=== PATIENT | female | born 1990 | race Caucasian/White ===

== ENCOUNTER 2019-09-26 14:23 | Inpatient (IN) | payer SELFPAY ==
[2019-09-26] MEDS ORDERED: DOCUSATE SODIUM 100 MG CAP PO PRN (14:31)
[2019-09-26] MEDS ORDERED: AMPICILLIN/NS 2 GM/100 ML 2 GM/100 ML BAG IV ONE (14:31)
[2019-09-26] MEDS ORDERED: ONDANSETRON 4 MG/2 ML INJ IV PRN (14:31)
[2019-09-26] MEDS ORDERED: MAGNESIUM SULFATE 4 GM/100 ML BAG IV ONE (14:39)
[2019-09-26] MEDS: LACTATED RINGERS 1,000 ML IV SCH (15:31)
[2019-09-26 16:12] LABS: Basophils # (Auto) 0.1 K/mm3 (0.0-0.1); Basophils % (Auto) 0.4 % (0.0-1.8); Eosinophils % (Auto) 0.1 % (0.0-4.3); Hemoglobin 11.4 gm/dl (10.1-14.3); Lymphocytes # (Auto) 1.9 K/mm3 (1.2-5.4); Lymphocytes % (Auto) 15.9 % (13.4-35.0); Mean Corpuscular HGB Conc 33 % (30-34); Mean Corpuscular Volume 92 fl (79-97); Monocytes # (Auto) 0.5 K/mm3 (0.0-0.8); Monocytes % (Auto) 4.1 % (0.0-7.3); Platelet Count 266 K/mm3 (140-440); Red Blood Count 3.71 M/mm3 (3.65-5.03); Red Cell Distribution Width 13.9 % (13.2-15.2)
[2019-09-26] MEDS: MAGNESIUM SULFATE 40GM/1000ML 40 GM/1,000 ML BAG IV SCH (16:12)
[2019-09-26] MEDS: BETAMET ACET/BETAMET NA PH 6 MG/ML INJ 5 ML MDV IM SCH (16:13)
--- NOTE | 2019-09-26 16:18 | History and Physical Report ---
History of Present Illness Date of examination: 09/26/19 (pt presents today with worsening pain that has been ongoing the entire .) History of present illness: Pt states she has been in [place] for 2 weeks She traveled here from . Pt states she has gone to hospital ED or Triage for care. She has not seen an OB for care. Pt states her other 3 children are in [place] with their dad. US done today 30w4d EDC 12-01-2019 third trimester US Medical: pt states she has stomach ulcers and acid reflux Surgical: no hx Denies ETOH,drugs,smoking 1. 2008 term no problems 2. 2011 term no problems 3. 2018 @ 36w EDC based on early US done in [place] 12-07-2019 Past History - Obstetrical History Expected Date of Delivery: 12/07/19 (per pt based on one of her many visits to EDs in [place]) Actual Gestation: 29 Week(s) 5 Day(s) : 4 Para: 3 Hx # Term Pregnancies: 2 Number of Pregnancies: 1 (36 weeks) Spontaneous Abortions: 0 Induced : 0 Number of Living Children: 3 Medications and Allergies Allergies Allergy/AdvReac Type Severity Reaction Status Date / Time No Known Allergies Allergy Unverified 09/26/19 14:29 Active Meds: Active Medications Acetaminophen (Tylenol) 650 mg PO Q4H PRN PRN Reason: Pain MILD(1-3)/Fever >100.5/CAMPOS Betamethasone Acet/Betameth SodPhos (Celestone Soluspan) 12 mg IM Q24HR SERAFIN Stop: 09/27/19 10:01 Docusate Sodium (Colace) 100 mg PO Q12H PRN PRN Reason: Constipation Lactated Ringer's (Lactated Ringers) 1,000 mls @ 125 mls/hr IV DIRECT SERAFIN Last Admin: 09/26/19 15:31 Dose: 75 mls/hr Documented by: Ampicillin Sodium (Ampicillin/Ns 1 Gm/50 Ml) 1 gm in 50 mls @ 100 mls/hr IV Q4HR SERAFIN; Protocol Magnesium Sulfate (Magnesium Sulfate 40gm/1000ml) 40 gm in 1,000 mls @ 50 mls/hr IV DIRECT SERAFIN Multivitamins/Iron/Calcium ( Vitamin) 1 each PO QDAY SERAFIN Ondansetron HCl (Zofran) 4 mg IV Q6H PRN PRN Reason: Nausea And Vomiting Last Admin: 09/26/19 15:47 Dose: 4 mg Documented by: Review of Systems Gastrointestinal: heartburn, indigestion - Vital Signs Vital signs: Vital Signs Temp 98.0 F 09/26/19 14:26 Temp Pulse Resp BP Pulse Ox 98.0 F 73 141/82 97 09/26/19 14:26 09/26/19 16:08 09/26/19 14:29 09/26/19 16:08 - Physical Exam Breasts: Positive: deferred Cardiovascular: Regular rate, Normal S1, Normal S2 Lungs: Positive: Clear to auscultation Abdomen: Positive: normal appearance, soft, normal bowel sounds. Negative: distention, tenderness Genitourinary (Female): Positive: normal external genitalia Vulva: both: normal Vagina: Positive: normal moisture. Negative: discharge Cervix: Negative: lesion, discharge Uterus: Positive: normal size, normal contour Adnexa: both: normal Anus/Rectum: Positive: normal perianal skin, heme negative. Negative: rectal mass, hemorrhoids Extremities: Positive: normal Deep Tendon Reflex Grade: Normal +2 - Obstetrical FHR: category 1 Uterine Contraction Monitor Mode: External Cervical Dilatation: 2.5 Cervical Effacement Percentage: 40 station: -3 Uterine Contraction Pattern: Irregular Uterine Tone Measurement Phase: Resting Uterine Contraction Intensity: Mild Results Result Diagrams: 09/26/19 14:30 09/26/19 14:30 All other labs normal. all OB labs ordered Assessment and Plan 29yo @ 29w5d No PNC. All orders in EMR. - Patient Problems (1) Reflux gastritis Onset Date: ~09/26/19 Current Visit: Yes Status: Acute Plan to address problem: Pt states she has had this problem with every . Pepcid IV given. Appears to have given relief (2) No care in current in third trimester Onset Date: ~09/26/19 Current Visit: Yes Status: Acute Plan to address problem: Pt has not had any care with this . States she has not gotten any medicaid. Traveled here from [place] just 2 weeks ago. She lives with her mother in- law who works in a restaurant. Her 3 children live in [place] with their father. All OB labs drawn. (3) 29 to 30 weeks gestation of Onset Date: ~09/26/19 Current Visit: Yes Status: Acute Plan to address problem: On arrival today Pt was screaming and thrashing about. Initial exam by RN 4,thin,0. Elevated BP on arrival. RN spoke to DR Redd orders placed for MGSO4, BMZ, and ABX. Rare ctx noted on monitor @ this time and encouraged pt to stop bearing down. FHR Cat [address] Redd given report.
[2019-09-26] MEDS: ACETAMINOPHEN 325 MG TAB PO PRN (16:26)
[2019-09-26] MEDS ORDERED: FAMOTIDINE 20 MG/2 ML INJ IV ONE (16:26)
[2019-09-26 16:28] LABS: Alanine Aminotransferase 19 units/L (7-56); Albumin 3.8 g/dL (3.9-5); BUN/Creatinine Ratio 25; Blood Urea Nitrogen 10 mg/dL (7-17); Hemolysis Index 7
[2019-09-26] MEDS: FAMOTIDINE 20 MG/2 ML INJ IV SCH (16:28)
[2019-09-26 16:34] LABS: Hepatitis C Virus Antibody Non-Reactive (NonReactive)
--- NOTE | 2019-09-26 16:49 | Ultrasound Report ---
ULTRASOUND OBSTETRIC INDICATION / CLINICAL INFORMATION: labor / no care. Clinical Gestational Age (GA): 29 weeks 5 days TECHNIQUE: Transabdominal. COMPARISON: None available. FINDINGS: There is a single intrauterine . Biparietal Diameter = 7.93 cm = 31 weeks, 6 day(s). Head Circumference = 28.79 cm = 31 weeks, 5 day(s). Abdominal Circumference = 24.73 cm = 29 weeks, 0 day(s). Femur Length = 5.6 cm = 29 weeks, 3 day(s). Average Ultrasound Age (AUA) = 30 weeks, 4 day(s). Heart Rate: 141 beats per minute. Estimated Weight in grams (if calculated): 1419 Estimated Weight Growth Percentile (if calculated): 32 Position: cephalic. Cervix: closed. Placenta: Fundal and free of the os. Amniotic Fluid Volume: normal Amniotic Fluid Index (AMBAR) in cm (if calculated): 11.0. Maternal Adnexa: No significant abnormality. IMPRESSION: 1. Single, living intrauterine with estimated sonographic age of 30 weeks, 4 day(s). 2. No significant sonographic abnormality. Signer Name: Moustapha Sung MD Signed: 09/26/2019 4:45 PM Workstation Name: [id number]
[2019-09-26 17:10] LABS: Bacteria,Urine 1+ /HPF (Negative); Bilirubin,Urine NEG (Negative); Blood,Urine NEG (Negative); Color,Urine Yellow (Yellow); Mucus,Urine 1+ /HPF; Protein,Urine <15 mg/dL mg/dL (Negative); Urobilinogen,Urine < 2.0 mg/dL (<2.0)
[2019-09-26 17:15] LABS: Amphetamine Screen,Urine PRESUMPTIVE NEGATIVE; Benzodiazepines Screen,Urine PRESUMPTIVE NEGATIVE; Cocaine Screen,Urine PRESUMPTIVE NEGATIVE; Methadone Screen,Urine PRESUMPTIVE NEGATIVE; Opiate Screen,Urine PRESUMPTIVE NEGATIVE
[2019-09-26 17:31] LABS: Cannabinoid Screen,Urine PRESUMPTIVE POSITIVE
[2019-09-26] MEDS ORDERED: fentaNYL 100 MCG/2 ML INJ IV ONE (19:46)
[2019-09-26] MEDS: AMPICILLIN/NS 1 GM/50 ML 1 GM/50 ML BAG IV SCH (21:25)
--- NOTE | 2019-09-26 22:49 | Event Note ---
Date: 09/26/19 UDS positive for MJ as per RN pt states she ate the marijuana and did not smoke it.
[2019-09-27] MEDS: AMPICILLIN/NS 1 GM/50 ML 1 GM/50 ML BAG IV SCH ×4 (01:34→14:55)
[2019-09-27] MEDS ORDERED: ZOLPIDEM 5 MG TAB PO PRN (01:40)
[2019-09-27] MEDS ORDERED: ZOLPIDEM 5 MG TAB ONE (01:41)
[2019-09-27] MEDS: ACETAMINOPHEN 325 MG TAB PO PRN ×2 (01:42→12:08)
[2019-09-27] MEDS ORDERED: ACETAMINOPHEN 500 MG TAB PO NR (07:58)
--- NOTE | 2019-09-27 08:30 | Progress Note ---
<SCOTTY WEI - Last Filed: 09/27/19 08:23> Assessment and Plan A: 29 y.o. @ 29 wks admitted for labor, no PNC. P: Continue with magnesium sulfate until about 415pm today. Second dose of BMZ @ 415pm Possible discharge home after second dose of BMZ. Subjective - Subjective Date of service: 09/27/19 (Pt with c/o right shoulder pain.) Principal diagnosis: IUP @ 30 wks, labor Patient reports: new complaints (Right shoulder pain. States that she laid on it the wrong way. ) Objective - Vital Signs Vital Signs: Vital Signs - 12hr 09/26/19 09/26/19 09/26/19 20:28 20:33 20:38 Temperature Pulse Rate 82 71 76 Respiratory Rate Blood Pressure O2 Sat by Pulse 97 97 96 Oximetry 09/26/19 09/26/19 09/26/19 20:43 20:48 20:50 Temperature Pulse Rate 73 71 72 Respiratory Rate Blood Pressure 104/60 O2 Sat by Pulse 96 95 Oximetry 09/26/19 09/26/19 09/26/19 20:53 20:57 20:58 Temperature Pulse Rate 82 70 Respiratory 18 Rate Blood Pressure O2 Sat by Pulse 95 97 Oximetry 09/26/19 09/26/19 09/26/19 21:03 21:08 21:13 Temperature Pulse Rate 76 83 74 Respiratory Rate Blood Pressure O2 Sat by Pulse 97 98 97 Oximetry 09/26/19 09/26/19 09/26/19 21:18 21:20 21:21 Temperature Pulse Rate 77 76 86 Respiratory Rate Blood Pressure 124/63 O2 Sat by Pulse 97 92 Oximetry 09/26/19 09/26/19 09/26/19 21:23 21:28 21:33 Temperature Pulse Rate 81 72 83 Respiratory Rate Blood Pressure O2 Sat by Pulse 97 98 98 Oximetry 09/26/19 09/26/19 09/26/19 21:38 21:43 21:48 Temperature Pulse Rate 85 82 69 Respiratory Rate Blood Pressure O2 Sat by Pulse 97 98 97 Oximetry 09/26/19 09/26/19 09/26/19 21:50 21:53 21:58 Temperature Pulse Rate 69 85 81 Respiratory Rate Blood Pressure 122/57 O2 Sat by Pulse 97 97 Oximetry 09/26/19 09/26/19 09/26/19 22:03 22:08 22:13 Temperature Pulse Rate 81 77 75 Respiratory Rate Blood Pressure O2 Sat by Pulse 97 98 98 Oximetry 09/26/19 09/26/19 09/26/19 22:18 22:20 22:23 Temperature Pulse Rate 67 74 79 Respiratory Rate Blood Pressure 123/59 O2 Sat by Pulse 97 98 Oximetry 09/26/19 09/26/19 09/26/19 22:28 22:33 22:38 Temperature Pulse Rate 74 75 72 Respiratory Rate Blood Pressure O2 Sat by Pulse 97 96 98 Oximetry 09/26/19 09/26/19 09/26/19 22:41 22:43 22:48 Temperature Pulse Rate 85 88 91 H Respiratory Rate Blood Pressure O2 Sat by Pulse 94 97 97 Oximetry 09/26/19 09/26/19 09/26/19 22:50 22:53 22:58 Temperature Pulse Rate 78 76 67 Respiratory Rate Blood Pressure 118/66 O2 Sat by Pulse 96 98 Oximetry 09/26/19 09/26/19 09/26/19 23:03 23:08 23:13 Temperature Pulse Rate 87 68 89 Respiratory Rate Blood Pressure O2 Sat by Pulse 94 98 98 Oximetry 09/26/19 09/26/19 09/26/19 23:18 23:20 23:23 Temperature Pulse Rate 77 83 70 Respiratory Rate Blood Pressure 111/59 O2 Sat by Pulse 97 97 Oximetry 09/26/19 09/26/19 09/26/19 23:28 23:33 23:38 Temperature Pulse Rate 86 81 77 Respiratory Rate Blood Pressure O2 Sat by Pulse 97 98 98 Oximetry 09/26/19 09/26/19 09/26/19 23:43 23:48 23:50 Temperature Pulse Rate 82 84 82 Respiratory Rate Blood Pressure 123/57 O2 Sat by Pulse 97 98 Oximetry 09/26/19 09/26/19 09/27/19 23:53 23:58 00:00 Temperature 98.1 F Pulse Rate 82 83 88 Respiratory 17 Rate Blood Pressure O2 Sat by Pulse 99 99 Oximetry 09/27/19 09/27/19 09/27/19 00:03 00:08 00:13 Temperature Pulse Rate 74 74 85 Respiratory Rate Blood Pressure O2 Sat by Pulse 97 98 97 Oximetry 09/27/19 09/27/19 09/27/19 00:18 00:20 00:23 Temperature Pulse Rate 78 83 75 Respiratory Rate Blood Pressure 116/62 O2 Sat by Pulse 98 98 Oximetry 09/27/19 09/27/19 09/27/19 00:28 00:33 00:38 Temperature Pulse Rate 79 65 67 Respiratory Rate Blood Pressure O2 Sat by Pulse 97 97 97 Oximetry 09/27/19 09/27/19 09/27/19 00:43 00:48 00:50 Temperature Pulse Rate 98 H 95 H 68 Respiratory Rate Blood Pressure 113/57 O2 Sat by Pulse 97 98 Oximetry 09/27/19 09/27/19 09/27/19 00:53 00:58 01:01 Temperature Pulse Rate 70 86 85 Respiratory Rate Blood Pressure O2 Sat by Pulse 97 96 93 Oximetry 09/27/19 09/27/19 09/27/19 01:03 01:08 01:13 Temperature Pulse Rate 93 H 77 66 Respiratory Rate Blood Pressure O2 Sat by Pulse 97 98 97 Oximetry 09/27/19 09/27/19 09/27/19 01:18 01:20 01:23 Temperature Pulse Rate 75 69 69 Respiratory Rate Blood Pressure 109/61 O2 Sat by Pulse 97 97 Oximetry 09/27/19 09/27/19 09/27/19 01:28 01:33 01:38 Temperature Pulse Rate 72 64 89 Respiratory Rate Blood Pressure O2 Sat by Pulse 96 97 98 Oximetry 09/27/19 09/27/19 09/27/19 01:43 01:48 01:50 Temperature Pulse Rate 87 68 65 Respiratory Rate Blood Pressure 110/61 O2 Sat by Pulse 98 99 Oximetry 09/27/19 09/27/19 09/27/19 01:53 01:58 02:03 Temperature Pulse Rate 75 81 70 Respiratory Rate Blood Pressure O2 Sat by Pulse 99 98 98 Oximetry 09/27/19 09/27/19 09/27/19 02:08 02:13 02:18 Temperature Pulse Rate 74 82 73 Respiratory Rate Blood Pressure O2 Sat by Pulse 98 99 99 Oximetry 09/27/19 09/27/19 09/27/19 02:20 02:23 02:28 Temperature Pulse Rate 74 75 84 Respiratory Rate Blood Pressure 103/56 O2 Sat by Pulse 99 99 Oximetry 09/27/19 09/27/19 09/27/19 02:33 02:38 02:43 Temperature Pulse Rate 71 80 89 Respiratory Rate Blood Pressure O2 Sat by Pulse 100 99 98 Oximetry 09/27/19 09/27/19 09/27/19 02:48 02:50 02:53 Temperature Pulse Rate 76 84 86 Respiratory Rate Blood Pressure 105/60 O2 Sat by Pulse 100 99 Oximetry 09/27/19 09/27/19 09/27/19 02:58 03:03 03:08 Temperature Pulse Rate 83 86 96 H Respiratory Rate Blood Pressure O2 Sat by Pulse 99 98 99 Oximetry 09/27/19 09/27/19 09/27/19 03:13 03:18 03:20 Temperature Pulse Rate 91 H 89 87 Respiratory Rate Blood Pressure 108/57 O2 Sat by Pulse 97 99 Oximetry 09/27/19 09/27/19 09/27/19 03:23 03:28 03:33 Temperature Pulse Rate 88 87 92 H Respiratory Rate Blood Pressure O2 Sat by Pulse 98 98 96 Oximetry 09/27/19 09/27/19 09/27/19 03:38 03:43 03:48 Temperature Pulse Rate 90 83 83 Respiratory Rate Blood Pressure O2 Sat by Pulse 99 97 96 Oximetry 09/27/19 09/27/19 09/27/19 03:53 03:58 04:03 Temperature Pulse Rate 82 81 82 Respiratory Rate Blood Pressure O2 Sat by Pulse 96 96 96 Oximetry 09/27/19 09/27/19 09/27/19 04:08 04:13 04:18 Temperature Pulse Rate 79 80 80 Respiratory Rate Blood Pressure O2 Sat by Pulse 96 96 97 Oximetry 09/27/19 09/27/19 09/27/19 04:23 04:28 04:33 Temperature Pulse Rate 82 79 81 Respiratory Rate Blood Pressure O2 Sat by Pulse 97 97 97 Oximetry 09/27/19 09/27/19 09/27/19 04:38 04:43 04:48 Temperature Pulse Rate 78 80 74 Respiratory Rate Blood Pressure O2 Sat by Pulse 97 98 97 Oximetry 09/27/19 09/27/19 09/27/19 04:53 04:58 05:03 Temperature Pulse Rate 73 75 74 Respiratory Rate Blood Pressure O2 Sat by Pulse 98 97 97 Oximetry 09/27/19 09/27/19 09/27/19 05:08 05:13 05:18 Temperature Pulse Rate 73 86 79 Respiratory Rate Blood Pressure O2 Sat by Pulse 96 96 96 Oximetry 09/27/19 09/27/19 09/27/19 05:21 05:23 05:28 Temperature Pulse Rate 78 79 78 Respiratory Rate Blood Pressure 93/53 O2 Sat by Pulse 96 96 Oximetry 09/27/19 09/27/19 09/27/19 05:33 05:38 05:43 Temperature Pulse Rate 74 79 80 Respiratory Rate Blood Pressure O2 Sat by Pulse 96 96 96 Oximetry 09/27/19 09/27/19 09/27/19 05:46 05:48 05:50 Temperature Pulse Rate 86 77 78 Respiratory Rate Blood Pressure 97/50 O2 Sat by Pulse 94 98 Oximetry 09/27/19 09/27/19 09/27/19 05:53 05:58 06:03 Temperature Pulse Rate 76 77 100 H Respiratory Rate Blood Pressure O2 Sat by Pulse 97 97 98 Oximetry 09/27/19 09/27/19 09/27/19 06:08 06:13 06:18 Temperature Pulse Rate 72 88 79 Respiratory Rate Blood Pressure O2 Sat by Pulse 98 99 97 Oximetry 09/27/19 09/27/19 09/27/19 06:20 06:23 06:28 Temperature Pulse Rate 78 82 74 Respiratory Rate Blood Pressure 103/57 O2 Sat by Pulse 97 97 Oximetry 09/27/19 09/27/19 09/27/19 06:33 06:38 06:43 Temperature Pulse Rate 91 H 84 79 Respiratory Rate Blood Pressure O2 Sat by Pulse 97 98 97 Oximetry 09/27/19 09/27/19 09/27/19 06:48 06:53 06:58 Temperature Pulse Rate 72 71 74 Respiratory Rate Blood Pressure O2 Sat by Pulse 97 98 97 Oximetry 09/27/19 09/27/19 09/27/19 07:03 07:08 07:13 Temperature Pulse Rate 74 73 76 Respiratory Rate Blood Pressure O2 Sat by Pulse 97 97 97 Oximetry 09/27/19 09/27/19 09/27/19 07:18 07:23 07:28 Temperature Pulse Rate 76 77 76 Respiratory Rate Blood Pressure O2 Sat by Pulse 96 96 96 Oximetry 09/27/19 09/27/19 09/27/19 07:33 07:38 07:43 Temperature Pulse Rate 76 84 99 H Respiratory Rate Blood Pressure O2 Sat by Pulse 96 98 100 Oximetry 09/27/19 09/27/19 09/27/19 07:48 07:53 07:55 Temperature Pulse Rate 98 H 95 H 99 H Respiratory Rate Blood Pressure O2 Sat by Pulse 98 99 94 Oximetry 09/27/19 09/27/19 09/27/19 07:58 08:03 08:08 Temperature Pulse Rate 107 H 80 92 H Respiratory Rate Blood Pressure O2 Sat by Pulse 98 99 95 Oximetry 09/27/19 09/27/19 08:13 08:18 Temperature Pulse Rate 87 84 Respiratory Rate Blood Pressure O2 Sat by Pulse 99 99 Oximetry - Exam Narrative Exam: Pt moving about in the bed stating that her right shoulder hurts from laying on it. Tylenol Extra Strength ordered. Explained plan of care for the day to the patient and she is questioning why she needs to stay in the hospital for the day. Explained at length that we have to monitor her and her baby d/t labor. She has a strong desire to go home and I also explained that it is possible that she will be discharged home if she is stable after the second dose of BMZ. Pt agrees to this plan at this time. Breasts: deferred Cardiovascular: Regular rate Lungs: Normal air movement Abdomen: Present: normal appearance, soft Vulva: both: normal Uterus: Present: normal FHR: auscultation normal, category 1 Uterine Contraction Monitor Mode: External Uterine Contraction Pattern: Absent Uterine Tone Measurement Phase: Resting Extremities: normal Deep Tendon Reflex Grade: Normal +2 - Labs Labs: Abnormal Labs 09/26/19 09/26/19 09/27/19 14:30 14:30 00:10 WBC 12.2 H Seg Neutrophils % 79.5 H Seg Neutrophils # 9.7 H Sodium 135 L Carbon Dioxide 18 L Creatinine 0.4 L Magnesium 5.60 H Albumin 3.8 L 09/27/19 06:36 WBC Seg Neutrophils % Seg Neutrophils # Sodium Carbon Dioxide Creatinine Magnesium 5.80 H Albumin Laboratory Results - last 24 hr 09/26/19 09/26/19 09/26/19 14:30 14:30 14:30 WBC 12.2 H RBC 3.71 Hgb 11.4 Hct 34.0 MCV 92 MCH 31 MCHC 33 RDW 13.9 Plt Count 266 Lymph % (Auto) 15.9 Ray % (Auto) 4.1 Eos % (Auto) 0.1 Baso % (Auto) 0.4 Lymph # 1.9 Ray # 0.5 Eos # 0.0 Baso # 0.1 Seg Neutrophils % 79.5 H Seg Neutrophils # 9.7 H Sodium 135 L Potassium 3.6 Chloride 101.9 Carbon Dioxide 18 L Anion Gap 19 BUN 10 Creatinine 0.4 L Estimated GFR > 60 BUN/Creatinine Ratio 25 Glucose 91 Calcium 9.0 Magnesium Total Bilirubin 0.30 AST 16 ALT 19 Alkaline Phosphatase 112 Total Protein 7.0 Albumin 3.8 L Albumin/Globulin Ratio 1.2 Urine Color Urine Turbidity Urine pH Ur Specific [place] Urine Protein Urine Glucose (UA) Urine Ketones Urine Blood Urine Nitrite Urine Bilirubin Urine Urobilinogen Ur Leukocyte Esterase Urine WBC (Auto) Urine RBC (Auto) U Epithel Cells (Auto) Urine Bacteria (Auto) Urine Mucus Urine Opiates Screen Urine Methadone Screen Ur Barbiturates Screen Ur Phencyclidine Scrn Ur Amphetamines Screen U Benzodiazepines Scrn Urine Cocaine Screen U Marijuana (THC) Screen Drugs of Abuse Note Syphilis IgG Antibody Hep Bs Antigen Hepatitis C Antibody HIV 1&2 Antibody Rapid HIV P24 Antigen Rubella IgG Antibody Blood Type O POSITIVE Antibody Screen Negative 09/26/19 09/26/19 09/26/19 14:30 14:30 14:30 WBC RBC Hgb Hct MCV MCH MCHC RDW Plt Count Lymph % (Auto) Ray % (Auto) Eos % (Auto) Baso % (Auto) Lymph # Ray # Eos # Baso # Seg Neutrophils % Seg Neutrophils # Sodium Potassium Chloride Carbon Dioxide Anion Gap BUN Creatinine Estimated GFR BUN/Creatinine Ratio Glucose Calcium Magnesium Total Bilirubin AST ALT Alkaline Phosphatase Total Protein Albumin Albumin/Globulin Ratio Urine Color Urine Turbidity Urine pH Ur Specific [place] Urine Protein Urine Glucose (UA) Urine Ketones Urine Blood Urine Nitrite Urine Bilirubin Urine Urobilinogen Ur Leukocyte Esterase Urine WBC (Auto) Urine RBC (Auto) U Epithel Cells (Auto) Urine Bacteria (Auto) Urine Mucus Urine Opiates Screen Urine Methadone Screen Ur Barbiturates Screen Ur Phencyclidine Scrn Ur Amphetamines Screen U Benzodiazepines Scrn Urine Cocaine Screen U Marijuana (THC) Screen Drugs of Abuse Note Syphilis IgG Antibody Non-reactive Hep Bs Antigen Non-reactive Hepatitis C Antibody Non-reactive HIV 1&2 Antibody Rapid HIV P24 Antigen Rubella IgG Antibody Immune Blood Type Antibody Screen 09/26/19 09/26/19 09/26/19 14:30 16:40 16:40 WBC RBC Hgb Hct MCV MCH MCHC RDW Plt Count Lymph % (Auto) Ray % (Auto) Eos % (Auto) Baso % (Auto) Lymph # Ray # Eos # Baso # Seg Neutrophils % Seg Neutrophils # Sodium Potassium Chloride Carbon Dioxide Anion Gap BUN Creatinine Estimated GFR BUN/Creatinine Ratio Glucose Calcium Magnesium Total Bilirubin AST ALT Alkaline Phosphatase Total Protein Albumin Albumin/Globulin Ratio Urine Color Yellow Urine Turbidity Clear Urine pH 6.0 Ur Specific [place] 1.019 Urine Protein <15 mg/dl Urine Glucose (UA) Neg Urine Ketones 80 Urine Blood Neg Urine Nitrite Neg Urine Bilirubin Neg Urine Urobilinogen < 2.0 Ur Leukocyte Esterase Neg Urine WBC (Auto) 4.0 Urine RBC (Auto) 1.0 U Epithel Cells (Auto) 2.0 Urine Bacteria (Auto) 1+ Urine Mucus 1+ Urine Opiates Screen Presumptive negative Urine Methadone Screen Presumptive negative Ur Barbiturates Screen Presumptive negative Ur Phencyclidine Scrn Presumptive negative Ur Amphetamines Screen Presumptive negative U Benzodiazepines Scrn Presumptive negative Urine Cocaine Screen Presumptive negative U Marijuana (THC) Screen Presumptive positive Drugs of Abuse Note Disclamer Syphilis IgG Antibody Hep Bs Antigen Hepatitis C Antibody HIV 1&2 Antibody Rapid Non react HIV P24 Antigen Non react Rubella IgG Antibody Blood Type Antibody Screen 09/27/19 09/27/19 00:10 06:36 WBC RBC Hgb Hct MCV MCH MCHC RDW Plt Count Lymph % (Auto) Ray % (Auto) Eos % (Auto) Baso % (Auto) Lymph # Ray # Eos # Baso # Seg Neutrophils % Seg Neutrophils # Sodium Potassium Chloride Carbon Dioxide Anion Gap BUN Creatinine Estimated GFR BUN/Creatinine Ratio Glucose Calcium Magnesium 5.60 H 5.80 H Total Bilirubin AST ALT Alkaline Phosphatase Total Protein Albumin Albumin/Globulin Ratio Urine Color Urine Turbidity Urine pH Ur Specific [place] Urine Protein Urine Glucose (UA) Urine Ketones Urine Blood Urine Nitrite Urine Bilirubin Urine Urobilinogen Ur Leukocyte Esterase Urine WBC (Auto) Urine RBC (Auto) U Epithel Cells (Auto) Urine Bacteria (Auto) Urine Mucus Urine Opiates Screen Urine Methadone Screen Ur Barbiturates Screen Ur Phencyclidine Scrn Ur Amphetamines Screen U Benzodiazepines Scrn Urine Cocaine Screen U Marijuana (THC) Screen Drugs of Abuse Note Syphilis IgG Antibody Hep Bs Antigen Hepatitis C Antibody HIV 1&2 Antibody Rapid HIV P24 Antigen Rubella IgG Antibody Blood Type Antibody Screen <BRUNO ABDUL - Last Filed: 09/27/19 11:49> Assessment and Plan Patient resting bed. Plan of care discussed, Questions encouraged and answered. She states wants to go home, explained risks of labor with premature delivery to include but not limited to her or brain damage along with bleeding and infection that may lead to as well as or brain damage for the baby. Objective - Vital Signs Vital Signs: Vital Signs - 12hr 09/26/19 09/26/19 09/26/19 23:38 23:43 23:48 Temperature Pulse Rate 77 82 84 Respiratory Rate Blood Pressure Blood Pressure [Left] O2 Sat by Pulse 98 97 98 Oximetry 09/26/19 09/26/19 09/26/19 23:50 23:53 23:58 Temperature Pulse Rate 82 82 83 Respiratory Rate Blood Pressure 123/57 Blood Pressure [Left] O2 Sat by Pulse 99 99 Oximetry 09/27/19 09/27/19 09/27/19 00:00 00:03 00:08 Temperature 98.1 F Pulse Rate 88 74 74 Respiratory 17 Rate Blood Pressure Blood Pressure [Left] O2 Sat by Pulse 97 98 Oximetry 09/27/19 09/27/19 09/27/19 00:13 00:18 00:20 Temperature Pulse Rate 85 78 83 Respiratory Rate Blood Pressure 116/62 Blood Pressure [Left] O2 Sat by Pulse 97 98 Oximetry 09/27/19 09/27/19 09/27/19 00:23 00:28 00:33 Temperature Pulse Rate 75 79 65 Respiratory Rate Blood Pressure Blood Pressure [Left] O2 Sat by Pulse 98 97 97 Oximetry 09/27/19 09/27/19 09/27/19 00:38 00:43 00:48 Temperature Pulse Rate 67 98 H 95 H Respiratory Rate Blood Pressure Blood Pressure [Left] O2 Sat by Pulse 97 97 98 Oximetry 09/27/19 09/27/19 09/27/19 00:50 00:53 00:58 Temperature Pulse Rate 68 70 86 Respiratory Rate Blood Pressure 113/57 Blood Pressure [Left] O2 Sat by Pulse 97 96 Oximetry 09/27/19 09/27/19 09/27/19 01:01 01:03 01:08 Temperature Pulse Rate 85 93 H 77 Respiratory Rate Blood Pressure Blood Pressure [Left] O2 Sat by Pulse 93 97 98 Oximetry 09/27/19 09/27/19 09/27/19 01:13 01:18 01:20 Temperature Pulse Rate 66 75 69 Respiratory Rate Blood Pressure 109/61 Blood Pressure [Left] O2 Sat by Pulse 97 97 Oximetry 09/27/19 09/27/19 09/27/19 01:23 01:28 01:33 Temperature Pulse Rate 69 72 64 Respiratory Rate Blood Pressure Blood Pressure [Left] O2 Sat by Pulse 97 96 97 Oximetry 09/27/19 09/27/19 09/27/19 01:38 01:43 01:48 Temperature Pulse Rate 89 87 68 Respiratory Rate Blood Pressure Blood Pressure [Left] O2 Sat by Pulse 98 98 99 Oximetry 09/27/19 09/27/19 09/27/19 01:50 01:53 01:58 Temperature Pulse Rate 65 75 81 Respiratory Rate Blood Pressure 110/61 Blood Pressure [Left] O2 Sat by Pulse 99 98 Oximetry 09/27/19 09/27/19 09/27/19 02:03 02:08 02:13 Temperature Pulse Rate 70 74 82 Respiratory Rate Blood Pressure Blood Pressure [Left] O2 Sat by Pulse 98 98 99 Oximetry 09/27/19 09/27/19 09/27/19 02:18 02:20 02:23 Temperature Pulse Rate 73 74 75 Respiratory Rate Blood Pressure 103/56 Blood Pressure [Left] O2 Sat by Pulse 99 99 Oximetry 09/27/19 09/27/19 09/27/19 02:28 02:33 02:38 Temperature Pulse Rate 84 71 80 Respiratory Rate Blood Pressure Blood Pressure [Left] O2 Sat by Pulse 99 100 99 Oximetry 09/27/19 09/27/19 09/27/19 02:43 02:48 02:50 Temperature Pulse Rate 89 76 84 Respiratory Rate Blood Pressure 105/60 Blood Pressure [Left] O2 Sat by Pulse 98 100 Oximetry 09/27/19 09/27/19 09/27/19 02:53 02:58 03:03 Temperature Pulse Rate 86 83 86 Respiratory Rate Blood Pressure Blood Pressure [Left] O2 Sat by Pulse 99 99 98 Oximetry 09/27/19 09/27/19 09/27/19 03:08 03:13 03:18 Temperature Pulse Rate 96 H 91 H 89 Respiratory Rate Blood Pressure Blood Pressure [Left] O2 Sat by Pulse 99 97 99 Oximetry 09/27/19 09/27/19 09/27/19 03:20 03:23 03:28 Temperature Pulse Rate 87 88 87 Respiratory Rate Blood Pressure 108/57 Blood Pressure [Left] O2 Sat by Pulse 98 98 Oximetry 09/27/19 09/27/19 09/27/19 03:33 03:38 03:43 Temperature Pulse Rate 92 H 90 83 Respiratory Rate Blood Pressure Blood Pressure [Left] O2 Sat by Pulse 96 99 97 Oximetry 09/27/19 09/27/19 09/27/19 03:48 03:53 03:58 Temperature Pulse Rate 83 82 81 Respiratory Rate Blood Pressure Blood Pressure [Left] O2 Sat by Pulse 96 96 96 Oximetry 09/27/19 09/27/19 09/27/19 04:03 04:08 04:13 Temperature Pulse Rate 82 79 80 Respiratory Rate Blood Pressure Blood Pressure [Left] O2 Sat by Pulse 96 96 96 Oximetry 09/27/19 09/27/19 09/27/19 04:18 04:23 04:28 Temperature Pulse Rate 80 82 79 Respiratory Rate Blood Pressure Blood Pressure [Left] O2 Sat by Pulse 97 97 97 Oximetry 09/27/19 09/27/19 09/27/19 04:33 04:38 04:43 Temperature Pulse Rate 81 78 80 Respiratory Rate Blood Pressure Blood Pressure [Left] O2 Sat by Pulse 97 97 98 Oximetry 09/27/19 09/27/19 09/27/19 04:48 04:53 04:58 Temperature Pulse Rate 74 73 75 Respiratory Rate Blood Pressure Blood Pressure [Left] O2 Sat by Pulse 97 98 97 Oximetry 09/27/19 09/27/19 09/27/19 05:03 05:08 05:13 Temperature Pulse Rate 74 73 86 Respiratory Rate Blood Pressure Blood Pressure [Left] O2 Sat by Pulse 97 96 96 Oximetry 09/27/19 09/27/19 09/27/19 05:18 05:21 05:23 Temperature Pulse Rate 79 78 79 Respiratory Rate Blood Pressure 93/53 Blood Pressure [Left] O2 Sat by Pulse 96 96 Oximetry 09/27/19 09/27/19 09/27/19 05:28 05:33 05:38 Temperature Pulse Rate 78 74 79 Respiratory Rate Blood Pressure Blood Pressure [Left] O2 Sat by Pulse 96 96 96 Oximetry 09/27/19 09/27/19 09/27/19 05:43 05:46 05:48 Temperature Pulse Rate 80 86 77 Respiratory Rate Blood Pressure Blood Pressure [Left] O2 Sat by Pulse 96 94 98 Oximetry 09/27/19 09/27/19 09/27/19 05:50 05:53 05:58 Temperature Pulse Rate 78 76 77 Respiratory Rate Blood Pressure 97/50 Blood Pressure [Left] O2 Sat by Pulse 97 97 Oximetry 09/27/19 09/27/19 09/27/19 06:03 06:08 06:13 Temperature Pulse Rate 100 H 72 88 Respiratory Rate Blood Pressure Blood Pressure [Left] O2 Sat by Pulse 98 98 99 Oximetry 09/27/19 09/27/19 09/27/19 06:18 06:20 06:23 Temperature Pulse Rate 79 78 82 Respiratory Rate Blood Pressure 103/57 Blood Pressure [Left] O2 Sat by Pulse 97 97 Oximetry 09/27/19 09/27/19 09/27/19 06:28 06:33 06:38 Temperature Pulse Rate 74 91 H 84 Respiratory Rate Blood Pressure Blood Pressure [Left] O2 Sat by Pulse 97 97 98 Oximetry 09/27/19 09/27/19 09/27/19 06:43 06:48 06:53 Temperature Pulse Rate 79 72 71 Respiratory Rate Blood Pressure Blood Pressure [Left] O2 Sat by Pulse 97 97 98 Oximetry 09/27/19 09/27/19 09/27/19 06:58 07:03 07:08 Temperature Pulse Rate 74 74 73 Respiratory Rate Blood Pressure Blood Pressure [Left] O2 Sat by Pulse 97 97 97 Oximetry 09/27/19 09/27/19 09/27/19 07:13 07:18 07:23 Temperature Pulse Rate 76 76 77 Respiratory Rate Blood Pressure Blood Pressure [Left] O2 Sat by Pulse 97 96 96 Oximetry 09/27/19 09/27/19 09/27/19 07:28 07:33 07:38 Temperature Pulse Rate 76 76 84 Respiratory Rate Blood Pressure Blood Pressure [Left] O2 Sat by Pulse 96 96 98 Oximetry 09/27/19 09/27/19 09/27/19 07:43 07:48 07:53 Temperature Pulse Rate 99 H 98 H 95 H Respiratory Rate Blood Pressure Blood Pressure [Left] O2 Sat by Pulse 100 98 99 Oximetry 09/27/19 09/27/19 09/27/19 07:55 07:58 08:03 Temperature Pulse Rate 99 H 107 H 80 Respiratory Rate Blood Pressure Blood Pressure [Left] O2 Sat by Pulse 94 98 99 Oximetry 09/27/19 09/27/19 09/27/19 08:08 08:13 08:18 Temperature Pulse Rate 92 H 87 84 Respiratory Rate Blood Pressure Blood Pressure [Left] O2 Sat by Pulse 95 99 99 Oximetry 09/27/19 09/27/19 09/27/19 08:23 08:28 08:30 Temperature Pulse Rate 98 H 81 74 Respiratory Rate Blood Pressure 112/59 Blood Pressure [Left] O2 Sat by Pulse 98 98 Oximetry 09/27/19 09/27/19 09/27/19 08:31 08:32 08:33 Temperature 97.4 F L Pulse Rate 82 83 84 Respiratory 18 Rate Blood Pressure 113/59 Blood Pressure 113/59 [Left] O2 Sat by Pulse 99 98 Oximetry 09/27/19 09/27/19 09/27/19 08:38 08:43 08:48 Temperature Pulse Rate 85 74 85 Respiratory Rate Blood Pressure Blood Pressure [Left] O2 Sat by Pulse 99 99 100 Oximetry 09/27/19 09/27/19 09/27/19 08:50 08:53 08:58 Temperature Pulse Rate 74 75 85 Respiratory Rate Blood Pressure 106/57 Blood Pressure [Left] O2 Sat by Pulse 95 99 Oximetry 09/27/19 09/27/19 09/27/19 09:03 09:08 09:13 Temperature Pulse Rate 81 80 83 Respiratory Rate Blood Pressure Blood Pressure [Left] O2 Sat by Pulse 99 99 99 Oximetry 09/27/19 09/27/19 09/27/19 09:18 09:20 09:23 Temperature Pulse Rate 77 75 85 Respiratory Rate Blood Pressure 107/66 Blood Pressure [Left] O2 Sat by Pulse 99 96 Oximetry 09/27/19 09/27/19 09/27/19 09:28 09:33 09:38 Temperature Pulse Rate 74 93 H 82 Respiratory Rate Blood Pressure Blood Pressure [Left] O2 Sat by Pulse 98 97 97 Oximetry 09/27/19 09/27/19 09/27/19 09:43 09:48 09:50 Temperature Pulse Rate 85 71 89 Respiratory Rate Blood Pressure 106/61 Blood Pressure [Left] O2 Sat by Pulse 97 98 Oximetry 09/27/19 09/27/19 09/27/19 09:53 09:58 10:03 Temperature Pulse Rate 85 84 81 Respiratory Rate Blood Pressure Blood Pressure [Left] O2 Sat by Pulse 97 97 98 Oximetry 09/27/19 09/27/19 09/27/19 10:05 10:08 10:12 Temperature Pulse Rate 104 H 105 H 100 H Respiratory Rate Blood Pressure Blood Pressure [Left] O2 Sat by Pulse 92 98 94 Oximetry 09/27/19 09/27/19 09/27/19 10:13 10:18 10:20 Temperature Pulse Rate 94 H 80 Respiratory Rate Blood Pressure 123/73 Blood Pressure [Left] O2 Sat by Pulse 97 98 Oximetry 09/27/19 09/27/19 09/27/19 10:23 10:28 10:33 Temperature Pulse Rate 71 79 74 Respiratory Rate Blood Pressure Blood Pressure [Left] O2 Sat by Pulse 100 98 99 Oximetry 09/27/19 09/27/19 09/27/19 10:38 10:43 10:48 Temperature Pulse Rate 75 77 70 Respiratory Rate Blood Pressure Blood Pressure [Left] O2 Sat by Pulse 98 100 100 Oximetry 09/27/19 09/27/19 09/27/19 10:50 10:53 10:58 Temperature Pulse Rate 68 71 71 Respiratory Rate Blood Pressure 120/77 Blood Pressure [Left] O2 Sat by Pulse 100 100 Oximetry 09/27/19 09/27/19 09/27/19 11:03 11:08 11:13 Temperature Pulse Rate 77 71 70 Respiratory Rate Blood Pressure Blood Pressure [Left] O2 Sat by Pulse 100 100 100 Oximetry 09/27/19 09/27/19 09/27/19 11:18 11:20 11:23 Temperature Pulse Rate 81 67 71 Respiratory Rate Blood Pressure 116/71 Blood Pressure [Left] O2 Sat by Pulse 99 100 Oximetry 09/27/19 09/27/19 11:28 11:33 Temperature Pulse Rate 71 67 Respiratory Rate Blood Pressure Blood Pressure [Left] O2 Sat by Pulse 100 99 Oximetry - Labs Labs: Abnormal Labs 09/26/19 09/26/19 09/27/19 14:30 14:30 00:10 WBC 12.2 H Seg Neutrophils % 79.5 H Seg Neutrophils # 9.7 H Sodium 135 L Carbon Dioxide 18 L Creatinine 0.4 L Magnesium 5.60 H Albumin 3.8 L 09/27/19 06:36 WBC Seg Neutrophils % Seg Neutrophils # Sodium Carbon Dioxide Creatinine Magnesium 5.80 H Albumin Laboratory Results - last 24 hr 09/26/19 09/26/19 09/26/19 14:30 14:30 14:30 WBC 12.2 H RBC 3.71 Hgb 11.4 Hct 34.0 MCV 92 MCH 31 MCHC 33 RDW 13.9 Plt Count 266 Lymph % (Auto) 15.9 Ray % (Auto) 4.1 Eos % (Auto) 0.1 Baso % (Auto) 0.4 Lymph # 1.9 Ray # 0.5 Eos # 0.0 Baso # 0.1 Seg Neutrophils % 79.5 H Seg Neutrophils # 9.7 H Sodium 135 L Potassium 3.6 Chloride 101.9 Carbon Dioxide 18 L Anion Gap 19 BUN 10 Creatinine 0.4 L Estimated GFR > 60 BUN/Creatinine Ratio 25 Glucose 91 Calcium 9.0 Magnesium Total Bilirubin 0.30 AST 16 ALT 19 Alkaline Phosphatase 112 Total Protein 7.0 Albumin 3.8 L Albumin/Globulin Ratio 1.2 Urine Color Urine Turbidity Urine pH Ur Specific [place] Urine Protein Urine Glucose (UA) Urine Ketones Urine Blood Urine Nitrite Urine Bilirubin Urine Urobilinogen Ur Leukocyte Esterase Urine WBC (Auto) Urine RBC (Auto) U Epithel Cells (Auto) Urine Bacteria (Auto) Urine Mucus Urine Opiates Screen Urine Methadone Screen Ur Barbiturates Screen Ur Phencyclidine Scrn Ur Amphetamines Screen U Benzodiazepines Scrn Urine Cocaine Screen U Marijuana (THC) Screen Drugs of Abuse Note Syphilis IgG Antibody Hep Bs Antigen Hepatitis C Antibody HIV 1&2 Antibody Rapid HIV P24 Antigen Rubella IgG Antibody Blood Type O POSITIVE Antibody Screen Negative 09/26/19 09/26/19 09/26/19 14:30 14:30 14:30 WBC RBC Hgb Hct MCV MCH MCHC RDW Plt Count Lymph % (Auto) Ray % (Auto) Eos % (Auto) Baso % (Auto) Lymph # Ray # Eos # Baso # Seg Neutrophils % Seg Neutrophils # Sodium Potassium Chloride Carbon Dioxide Anion Gap BUN Creatinine Estimated GFR BUN/Creatinine Ratio Glucose Calcium Magnesium Total Bilirubin AST ALT Alkaline Phosphatase Total Protein Albumin Albumin/Globulin Ratio Urine Color Urine Turbidity Urine pH Ur Specific [place] Urine Protein Urine Glucose (UA) Urine Ketones Urine Blood Urine Nitrite Urine Bilirubin Urine Urobilinogen Ur Leukocyte Esterase Urine WBC (Auto) Urine RBC (Auto) U Epithel Cells (Auto) Urine Bacteria (Auto) Urine Mucus Urine Opiates Screen Urine Methadone Screen Ur Barbiturates Screen Ur Phencyclidine Scrn Ur Amphetamines Screen U Benzodiazepines Scrn Urine Cocaine Screen U Marijuana (THC) Screen Drugs of Abuse Note Syphilis IgG Antibody Non-reactive Hep Bs Antigen Non-reactive Hepatitis C Antibody Non-reactive HIV 1&2 Antibody Rapid HIV P24 Antigen Rubella IgG Antibody Immune Blood Type Antibody Screen 09/26/19 09/26/19 09/26/19 14:30 16:40 16:40 WBC RBC Hgb Hct MCV MCH MCHC RDW Plt Count Lymph % (Auto) Ray % (Auto) Eos % (Auto) Baso % (Auto) Lymph # Ray # Eos # Baso # Seg Neutrophils % Seg Neutrophils # Sodium Potassium Chloride Carbon Dioxide Anion Gap BUN Creatinine Estimated GFR BUN/Creatinine Ratio Glucose Calcium Magnesium Total Bilirubin AST ALT Alkaline Phosphatase Total Protein Albumin Albumin/Globulin Ratio Urine Color Yellow Urine Turbidity Clear Urine pH 6.0 Ur Specific [place] 1.019 Urine Protein <15 mg/dl Urine Glucose (UA) Neg Urine Ketones 80 Urine Blood Neg Urine Nitrite Neg Urine Bilirubin Neg Urine Urobilinogen < 2.0 Ur Leukocyte Esterase Neg Urine WBC (Auto) 4.0 Urine RBC (Auto) 1.0 U Epithel Cells (Auto) 2.0 Urine Bacteria (Auto) 1+ Urine Mucus 1+ Urine Opiates Screen Presumptive negative Urine Methadone Screen Presumptive negative Ur Barbiturates Screen Presumptive negative Ur Phencyclidine Scrn Presumptive negative Ur Amphetamines Screen Presumptive negative U Benzodiazepines Scrn Presumptive negative Urine Cocaine Screen Presumptive negative U Marijuana (THC) Screen Presumptive positive Drugs of Abuse Note Disclamer Syphilis IgG Antibody Hep Bs Antigen Hepatitis C Antibody HIV 1&2 Antibody Rapid Non react HIV P24 Antigen Non react Rubella IgG Antibody Blood Type Antibody Screen 09/27/19 09/27/19 00:10 06:36 WBC RBC Hgb Hct MCV MCH MCHC RDW Plt Count Lymph % (Auto) Ray % (Auto) Eos % (Auto) Baso % (Auto) Lymph # Ray # Eos # Baso # Seg Neutrophils % Seg Neutrophils # Sodium Potassium Chloride Carbon Dioxide Anion Gap BUN Creatinine Estimated GFR BUN/Creatinine Ratio Glucose Calcium Magnesium 5.60 H 5.80 H Total Bilirubin AST ALT Alkaline Phosphatase Total Protein Albumin Albumin/Globulin Ratio Urine Color Urine Turbidity Urine pH Ur Specific [place] Urine Protein Urine Glucose (UA) Urine Ketones Urine Blood Urine Nitrite Urine Bilirubin Urine Urobilinogen Ur Leukocyte Esterase Urine WBC (Auto) Urine RBC (Auto) U Epithel Cells (Auto) Urine Bacteria (Auto) Urine Mucus Urine Opiates Screen Urine Methadone Screen Ur Barbiturates Screen Ur Phencyclidine Scrn Ur Amphetamines Screen U Benzodiazepines Scrn Urine Cocaine Screen U Marijuana (THC) Screen Drugs of Abuse Note Syphilis IgG Antibody Hep Bs Antigen Hepatitis C Antibody HIV 1&2 Antibody Rapid HIV P24 Antigen Rubella IgG Antibody Blood Type Antibody Screen
[2019-09-27] MEDS: LACTATED RINGERS 1,000 ML IV SCH (09:52)
[2019-09-27] MEDS ORDERED: PRENATAL VIT27-FE FUMARATE-FOLIC ACID VIT TAB PO SCH (10:00)
[2019-09-27] MEDS: FAMOTIDINE 20 MG/2 ML INJ IV SCH (10:06)
[2019-09-27] MEDS: MAGNESIUM SULFATE 40GM/1000ML 40 GM/1,000 ML BAG IV SCH (12:55)
--- NOTE | 2019-09-27 15:20 | Event Note ---
Date: 09/27/19 (Pt feeling better, wanting to eat) Spoke with RN taking care of patient. Patient states that she is feeling better and her pain level is 2/10. Went and spoke with patient and she states that she is feeling much better. We discussed relief measures for acid reflux. States that she has been vomiting at home. Has medication at home (TUMS, Maalox, "medicine for acid reflux"). Explained the plan of care for this evening, magnesium to be turned off, skinner discontinued, and watch patient and fetus for a few more hours after magnesium discontinued, administer second dose of BMZ, then she will be able to go home. Pt has a very strong desire to go home at this time. Discussed that we will need to watch for a few more hours after magnesium is discontinued and proper follow up after discharged from hospital. Will discuss more in detail with patient at discharge. Pt verbalized understanding.
[2019-09-27] MEDS: BETAMET ACET/BETAMET NA PH 6 MG/ML INJ 5 ML MDV IM SCH (16:24)
[2019-09-27 16:51] VITALS: BP 123/76
--- NOTE | 2019-09-27 18:58 | Discharge Summary ---
Providers - Providers Date of Admission: 09/26/19 14:31 Date of discharge: 09/27/19 (Pt has a very strong desire to go home. ) Attending physician: LISE CRUZ Primary care physician: LISE CRUZ Hospitalization Reason for admission: observation, labor (Patient undelivered) Delivery: other (Home undelivered.) Episiotomy: none Laceration: none Pertinent studies: Had a discussion regarding what to watch out for when at home. labor s/sx of lower back and abdominal pain that comes and goes or is constant, LOF, a increase amount in vaginal discharge, or vaginal bleeding like a period. We also discussed kick counts. Pt verbalized understanding of these instructions. Hospital course: S: Pt doing well. She is sitting up in bed and wanting to take out her IV. She denies pain, contractions, vaginal bleeding, LOF. States pain level is 0/10. O: VSS. No contractions noted on the monitor, category 1 monitor tracing. Adequate I&O's. Cervical exam remains unchanged at 2/50/-3. No vaginal bleeding, or s/sx of LOF noted while examing patient. A: 29 y.o. @ 29 wks, No care, s/p magnesium infusion and two doses of BMZ for labor, now stable for discharge home. P: Discharge home with instructions. Instructed to follow up with an OBGYN of choice. Given strict labor precautions. Condition at discharge: Good Disposition: [id number] TO HOME OR SELFCARE Plan - Provider Discharge Summary Activity: no sex for 6 weeks, no heavy lifting 4 weeks, no strenuous exercise Diet: routine Instructions: routine Additional instructions: [] Smoking cessation referral if applicable(refer to patient education folder f or contact #) [] Refer to [facility] Booklet Call your doctor immediately for: * Fever > 100.5 * Heavy vaginal bleeding ( >1 pad per hour) * Severe persistent headache * Shortness of breath * Reddened, hot, painful area to leg or breast * Drainage or odor from incision. * Keep incision clean and dry at all times and follow doctor's instructions regarding bathing/showering - Follow up plan Follow up: LISE CRUZ MD [Primary Care Provider] - 7 Days (1. You are being discharged home. Please come back to the hospital if you are having decreased movement, vaginal bleeding like a period, contractions that are occuring more than 4 an hour, or if you are leaking fluid. 2. Please follow up with a OBGYN. If you would like to follow up with us our office number is [phone].)
== END 2019-09-27 19:50 | disposition home or self-care (01) | DRG 833 ==
LOC: TRG 14:23 → APU 14:23 → TRG 14:31 → LD 14:31
PROVIDERS: ADMIT Obstetrics & Gynecology; ATTEND Obstetrics & Gynecology
DX: O99.613 Diseases of the digestive system complicating pregnancy, third trimester (principal); K29.60 Other gastritis without bleeding; K21.9 Gastro-esophageal reflux disease without esophagitis; Z3A.29 29 weeks gestation of pregnancy
CPT/HCPCS: 36415; 76805; 80053; 80307; 81001; 83735; 85025; 86592; 86706; 86762; 86803; 86850; 86900; 86901; 87806; G0378; J0290; J0702; J2405; J3010; J3475; J7120

== ENCOUNTER 2019-09-29 11:34 | Outpatient (CLI) | payer SELFPAY ==
[2019-09-29] MEDS ORDERED: LACTATED RINGERS 500 ML IV ONE (12:17)
[2019-09-29] MEDS ORDERED: FAMOTIDINE 20 MG/2 ML INJ IV SCH (13:00)
[2019-09-29 13:12] LABS: Basophils # (Auto) 0.1 K/mm3 (0.0-0.1); Basophils % (Auto) 1.1 % (0.0-1.8); Eosinophils # (Auto) 0.1 K/mm3 (0.0-0.4); Eosinophils % (Auto) 0.7 % (0.0-4.3); Hematocrit 33.4 % (30.3-42.9); Hemoglobin 11.1 gm/dl (10.1-14.3); Lymphocytes # (Auto) 3.3 K/mm3 (1.2-5.4); Mean Corpuscular HGB Conc 33 % (30-34); Mean Corpuscular Volume 92 fl (79-97); Monocytes # (Auto) 0.9 K/mm3 (0.0-0.8); Monocytes % (Auto) 7.1 % (0.0-7.3); Platelet Count 237 K/mm3 (140-440); Red Blood Count 3.65 M/mm3 (3.65-5.03); Red Cell Distribution Width 13.8 % (13.2-15.2)
[2019-09-29 14:05] LABS: Alanine Aminotransferase 42 units/L (7-56); Albumin 3.8 g/dL (3.9-5); BUN/Creatinine Ratio 18; Blood Urea Nitrogen 9 mg/dL (7-17); Calcium 9.4 mg/dL (8.4-10.2); Hemolysis Index 25
== END 2019-09-29 14:25 | disposition home or self-care (01) ==
LOC: TRG 11:34 → APU 11:34 → TRG 11:35
PROVIDERS: ATTEND Obstetrics & Gynecology
DX: O47.03 False labor before 37 completed weeks of gestation, third trimester (principal); Z3A.30 30 weeks gestation of pregnancy
CPT/HCPCS: 36415; 59025; 80053; 85025; 96365; 96366; J7120; 96360; 96374